=== PATIENT | male | born 1970 | race African-American/Black ===

== ENCOUNTER 2021-01-01 06:26 | Emergency (ER) | payer OTHER ==
--- OUTSIDE RECORDS SUMMARY | 2021-01-01 06:29 | XMS REPORT | Continuity of Care Document ---
:1970 Author Organization [facility] t Address [address] [place] [address] Care Team Providers Name Role Phone Lab, Fam Pob I Attending Clinician Unavailable Doctor Unassigned, Name Attending Clinician Unavailable Problems This patient has no known problems. Allergies, Adverse Reactions, Alerts This patient has no known allergies or adverse reactions. Medications This patient has no known medications. Procedures This patient has no known procedures. Encounters Start End Encounter Admission Attending Care Care Encounter Source Date/Time Date/Time Type Type Clinicians Facility Department ID 2020-01-17 2020-01-17 Laboratory Lab, [facility] [id number] 13:07:33 13:27:33 Only Fam Pob I Health [id number] [place] [id number] Professrachelle [phone] [address] 2020-01-17 2020-01-17 Letter Doctor JENN [id number] 00:00:00 00:00:00 (Out) Unassigned, PRANEETH [id number] [place] [facility] [id number] Results This patient has no known results.
--- NOTE | 2021-01-01 08:34 | ER ---
Nurse's Notes [facility] Name: Darnell Funes Age: 50 yrs Sex: Male : 1970 Arrival Date: 01/01/2021 Time: 06:33 Bed 27 Private MD: Diagnosis: Coronavirus infection, unspecified;Essential (primary) hypertension Presentation: 01/01 06:58 Chief complaint: Patient states: he has had a cough, congestion, and headache since bb last night. Coronavirus screen: congestion, cough unrelated to allergies, headache, Client presents with at least one sign or symptom that may indicate coronavirus-19. Standard/surgical mask placed on the client. 06:58 Method Of Arrival: Ambulatory bb 06:58 Ebola Screen: Patient denies exposure to infectious person. Patient denies travel to an Ebola-affected area in the 21 days before illness onset. Initial Sepsis Screen: Does the patient meet any 2 criteria? No. Patient's initial sepsis screen is negative. Does the patient have a suspected source of infection? No. Patient's initial sepsis screen is negative. Risk Assessment: Do you want to hurt yourself or someone else? Patient reports no desire to harm self or others. 06:58 Acuity: SARAH 3 08:09 Onset of symptoms was January 01, 2021. ap3 Historical: - Allergies: 07:22 No Known Allergies; jl7 - Home Meds: 07:13 amlodipine oral [Active]; Lisinopril Oral [Active]; Hydrochlorothiazide Oral [Active]; bb - PMHx: 07:13 Hypertensive disorder; bb - Immunization history:: Adult Immunizations up to date, Client reports having NOT received the Covid vaccine. - Social history:: Smoking status: Patient denies any tobacco usage or history of. Screenin:09 Abuse screen: Denies threats or abuse. Nutritional screening: No deficits noted. ap3 Tuberculosis screening: No symptoms or risk factors identified. Fall Risk None identified. Assessment: 07:21 Reassessment: [place] pt's mom, . Please call when ready for discharge. jl7 08:08 General: Appears in no apparent distress. comfortable, Behavior is calm, cooperative, ap3 appropriate for age. Pain: Denies pain. Neuro: Level of Consciousness is awake, alert, obeys commands, Oriented to person, place, time, situation, Appropriate for age Product Marketing Consultant are equal bilaterally Moves all extremities. Speech is normal. Cardiovascular: Denies chest pain. Respiratory: Reports cough that is Breath sounds are clear bilaterally. GI: No signs and/or symptoms were reported involving the gastrointestinal system. : No signs and/or symptoms were reported regarding the genitourinary system. EENT: Reports nasal congestion. Derm: No signs and/or symptoms reported regarding the dermatologic system. Vital Signs: 07:13 BP 163 / 98; Pulse 86; Resp 18 S; Temp 98; Pulse Ox 97% on R/A; Weight 112.49 kg (R); bb Height 6 ft. 2 in. (187.96 cm) (R); 08:07 BP 168 / 100; Pulse 76; Resp 17; Pulse Ox 100% on R/A; Pain 0/10; ap3 07:13 Body Mass Index 31.84 (112.49 kg, 187.96 cm) bb ED Course: 06:33 Patient arrived in ED. bp1 06:49 Brooklyn Garces FNP-C [facility]. kb 06:49 Javy Jarrett MD is Attending Physician. kb 07:13 Arm band placed on Patient placed in waiting room, Patient notified of wait time. covid bb swab sent to lab. 07:22 Ayaka Vora, DEVORAH is Primary Nurse. ap3 07:57 Triage completed. ss 08:09 Patient has correct armband on for positive identification. Bed in low position. Call ap3 light in reach. Side rails up X 1. Pulse ox on. NIBP on. Door closed. Noise minimized. 09:01 No provider procedures requiring assistance completed. Patient did not have IV access ap3 during this emergency room visit. Administered Medications: No medications were administered Outcome: 08:34 Discharge ordered by . kb 09:01 Discharged to home ambulatory. ap3 09:01 Condition: good 09:01 Discharge instructions given to patient, Instructed on discharge instructions, follow up and referral plans. Demonstrated understanding of instructions, follow-up care. 09:01 Patient left the ED. ap3 Signatures: Brooklyn Garces FNP-C FNP-Ckb Ballard, Brenda, RN RN bb Smirch, Shelby, RN RN Lolis Young RN RN jl7 Ayaka Vora RN RN ap3 Maryam Desir bp1
--- NOTE | 2021-01-01 08:35 | EDPHYS ---
Physician Documentation [facility] Name: Darnell Funes Age: 50 yrs Sex: Male : 1970 Arrival Date: 01/01/2021 Time: 06:33 Bed 27 Private MD: ED Physician Javy Jarrett HPI: 01/01 08:52 This 50 yrs old Black Male presents to ER via Ambulatory with complaints of High Blood kb Pressure. 08:32 Pt c/o high blood pressure and "a cold." States his normal blood pressure is around kb 180/100 even though he is on lisinopril, amlodipine and HCTZ. States his pressure is always high when he goes to the dr. Mother wants to know why he has hypertension. Pt states he has had cough, congestion and a headache since yesterday. 08:52 The patient has elevated blood pressure and discovered this at home, with a home kb device. Onset: The symptoms/episode began/occurred chronically. Associated signs and symptoms: Pertinent positives: headache, Pertinent negatives: chest pain, dizziness, dyspnea, lightheadedness, nausea, visual changes, vomiting, weakness. Severity of symptoms: At its worst the blood pressure was 178 mm Hg, in the emergency department the blood pressure is improved, mildly. The patient has not experienced similar symptoms in the past. The patient has not recently seen a physician. Historical: - Allergies: 07:22 No Known Allergies; jl7 - Home Meds: 07:13 amlodipine oral [Active]; Lisinopril Oral [Active]; Hydrochlorothiazide Oral [Active]; bb - PMHx: 07:13 Hypertensive disorder; bb - Immunization history:: Adult Immunizations up to date, Client reports having NOT received the Covid vaccine. - Social history:: Smoking status: Patient denies any tobacco usage or history of. ROS: 08:52 Constitutional: Negative for fever, chills, and weight loss. kb 08:52 ENT: Positive for rhinorrhea, sinus congestion. 08:52 Respiratory: Positive for cough, Negative for dyspnea on exertion, hemoptysis, orthopnea, pleurisy, shortness of breath, sputum production, wheezing. 08:52 Neuro: Positive for headache. 08:52 All other systems are negative. Exam: 08:52 Constitutional: This is a well developed, well nourished patient who is awake, alert, kb and in no acute distress. Head/Face: Normocephalic, atraumatic. ENT: Moist Mucous membranes Cardiovascular: Regular rate and rhythm with a normal S1 and S2. No gallops, murmurs, or rubs. No pulse deficits. Respiratory: Respirations even and unlabored. No increased work of breathing, no retractions or nasal flaring. Abdomen/GI: Soft, non-tender. No distention Skin: Warm, dry with normal turgor. Normal color. MS/ Extremity: Pulses equal, no cyanosis. Neurovascular intact. Full, normal range of motion. Neuro: Awake and alert, GCS 15, oriented to person, place, time, and situation. Moves all extremities. Normal gait. Psych: Awake, alert, with orientation to person, place and time. Behavior, mood, and affect are within normal limits. Vital Signs: 07:13 BP 163 / 98; Pulse 86; Resp 18 S; Temp 98; Pulse Ox 97% on R/A; Weight 112.49 kg (R); bb Height 6 ft. 2 in. (187.96 cm) (R); 08:07 BP 168 / 100; Pulse 76; Resp 17; Pulse Ox 100% on R/A; Pain 0/10; ap3 07:13 Body Mass Index 31.84 (112.49 kg, 187.96 cm) bb MDM: 06:49 Patient medically screened. kb 08:51 Data reviewed: vital signs, nurses notes. Data interpreted: Pulse oximetry: on room air kb is 100 %. Interpretation: normal. Counseling: I had a detailed discussion with the patient and/or guardian regarding: the historical points, exam findings, and any diagnostic results supporting the discharge/admit diagnosis, the need for outpatient follow up, a family practitioner, to return to the emergency department if symptoms worsen or persist or if there are any questions or concerns that arise at home. ED course: Pt educated to keep blood pressure log and follow up with PCP for adjustment of medications as needed. 01/01 08:33 Order name: SARS-COV-2 RT PCR; Complete Time: 08:33 EDMS 01/01 07:57 Order name: Blood Pressure Recheck; Complete Time: 08:09 kb Administered Medications: No medications were administered Disposition Summary: 01/01/21 08:34 Discharge Ordered Location: Home kb Condition: Stable kb Diagnosis - Coronavirus infection, unspecified kb - Essential (primary) hypertension kb Followup: kb - With: Emergency Department - When: As needed - Reason: Worsening of condition Followup: kb - With: Private Physician - When: 2 - 3 days - Reason: Recheck today's complaints, Continuance of care, Re-evaluation by your physician Discharge Instructions: - Discharge Summary Sheet kb - Viral Respiratory Infection, [id number] kb - COVID-19 kb Forms: - Medication Reconciliation Form kb - Thank You Letter kb - Antibiotic Education kb - Prescription Opioid Use kb Signatures: Dispatcher [employer] EDMS Brooklyn Garces, REHABILITATION MEDICINE PHYSICIAN-C AUDRA-Mei Woodard RN RN Lolis Ni RN RN jl7 Corrections: (The following items were deleted from the chart) 07:41 06:50 CORONAVIRUS+BRZ ordered. EDMD EDMS
[2021-01-01 09:08] VITALS: TEMP 98
[2021-01-01 09:10] VITALS: BP 168/100; O2SAT 100
== END 2021-01-01 09:01 | disposition home or self-care (01) ==
LOC: ER 06:26
DX: U07.1 COVID-19 (principal); I10 Essential (primary) hypertension
CPT/HCPCS: 99283; U0003